=== PATIENT | female | born 1930 | race Caucasian/White ===

== ENCOUNTER 2018-05-05 12:49 | Emergency (ER) | payer OTHER ==
[~2018-05-05] VITALS: Ht 160 cm; Wt 100.7 kg
[~2018-05-05 12:49] MED LIST: ATACAND32 MG; ELIQUIS2.5 MG; FAMOTIDINE20 MG; GABAPENTIN100 MG; METFORMIN HCL500 MG PO; SENNA DOCUSATE PO; SERTRALINE HCL50 MG
[2018-05-05] MEDS ORDERED: ATACAND32 MG (13:08)
[2018-05-05] MEDS ORDERED: NAMENDA XR28 MG PO (13:08)
[2018-05-05] MEDS ORDERED: FUROSEMIDE20 MG PO (13:08)
== END 2018-05-05 17:10 | disposition home or self-care (01) ==
LOC: ER 12:49 → CPU-OBS 13:35 → ER 13:35
DX: I48.91 Unspecified atrial fibrillation (principal); R53.83 Other fatigue; R07.89 Other chest pain; G30.8 Other Alzheimer's disease; F02.80 Dementia in other diseases classified elsewhere, unspecified severity, without behavioral disturbance, psychotic disturbance, mood disturbance, and anxiety; S05.11XA Contusion of eyeball and orbital tissues, right eye, initial encounter; W18.09XA Striking against other object with subsequent fall, initial encounter; Y93.89 Activity, other specified; Y92.018 Other place in single-family (private) house as the place of occurrence of the external cause; Y99.8 Other external cause status

== ENCOUNTER 2018-05-10 18:10 | Emergency (ER) | payer OTHER ==
[~2018-05-10] VITALS: Ht 167.6 cm; Wt 99.8 kg
[~2018-05-10 18:10] MED LIST changes: +FUROSEMIDE20 MG PO; +NAMENDA XR28 MG PO
[2018-05-10] MEDS ORDERED: COZAAR100 MG (19:07)
[2018-05-10] MEDS ORDERED: ISOSORBIDE MONO60 MG (19:08)
[2018-05-10] MEDS ORDERED: LIPITOR20 MG (19:08)
[2018-05-10] MEDS ORDERED: PNEU16DI2 (19:09)
== END 2018-05-10 22:27 | disposition home or self-care (01) ==
LOC: ER 18:10
DX: S01.02XA Laceration with foreign body of scalp, initial encounter (principal); S40.011A Contusion of right shoulder, initial encounter; I48.91 Unspecified atrial fibrillation; W18.09XA Striking against other object with subsequent fall, initial encounter; Y93.89 Activity, other specified; Y92.018 Other place in single-family (private) house as the place of occurrence of the external cause; Y99.8 Other external cause status

== ENCOUNTER 2018-06-04 18:18 | Emergency (ER) | payer OTHER ==
[~2018-06-04] VITALS: Ht 157.5 cm; Wt 100.7 kg
[~2018-06-04 18:18] MED LIST changes: +COZAAR100 MG; +ISOSORBIDE MONO60 MG; +LIPITOR20 MG; +PNEU16DI2
== END 2018-06-04 22:49 | disposition home or self-care (01) ==
LOC: ER 18:18
DX: I87.2 Venous insufficiency (chronic) (peripheral) (principal)